=== PATIENT | female | born 1985 | race American Indian/Alaskan Native ===

== ENCOUNTER 2018-09-26 07:18 | Day surgery (SDC) | payer MEDICAID ==
[2018-09-26] MEDS ORDERED: WATER FOR IRRIG STERILE IR ONE (07:52)
[2018-09-26] MEDS ORDERED: NACL 0.9% 1000 ML 1,000 ML IV SCH (08:00)
--- NOTE | 2018-09-26 08:00 | Anesthesia Consultation ---
Anesthesia Consult and Med Hx Date of service: 09/26/18 - Airway Anesthetic Teeth Evaluation: Good ROM Head & Neck: Adequate Mental/Hyoid Distance: Adequate Mallampati Class: Class II Intubation Access Assessment: Probably Good - Pulmonary Exam CTA: Yes - Cardiac Exam Cardiac Exam: No Murmur - Pre-Operative Health Status ASA Pre-Surgery Classification: ASA2, Emergency Proposed Anesthetic Plan: Epidural, MAC - Pulmonary Hx Smoking: No Hx Asthma: Yes Hx Respiratory Symptoms: No SOB: No COPD: No Home Oxygen Therapy: No Hx Pneumonia: No Hx Sleep Apnea: No - Cardiovascular System Hx Hypertension: No Hx Coronary Artery Disease: No Hx Heart Attack/AMI: No Hx Angina: No Hx Percutaneous Transluminal Coronary Angioplasty (PTCA): No Hx Cardia Arrhythmia: No Hx Pacemaker: No Hx Internal Defibrillator: No Hx Valvular Heart Disease: No Hx Heart Murmur: No Hx Peripheral Vascular Disease: No - Central Nervous System Hx Neuromuscular Disorder: No Hx Seizures: No CVA: No Hx Back Pain: No Hx Psychiatric Problems: No - Gastrointestinal Hx Ulcer: No Hx Gastroesophageal Reflux Disease: No - Endocrine Hx Renal Disease: No Hx End Stage Renal Disease: No Hx Cirrhosis: No Hx Liver Disease: No Hx Insulin Dependent Diabetes: No Hx Non-Insulin Dependent Diabetes: No Hx Thyroid Disease: No Hx Hypothyroidism: No Hx Hyperthyroidism: No - Hematic Hx Anemia: No Hx Sickle Cell Disease: No - Other Systems Hx Alcohol Use: No Hx Substance Use: No Hx Cancer: No Hx Obesity: No
--- NOTE | 2018-09-26 08:01 | Anesthesia Day of Surgery ---
Anesthesia Day of Surgery - Day of Surgery Patient Examined: Yes Patient H&P Reviewed: Yes Patient is NPO: Yes Beta Blockers: No Cardiac Clearance: No Pulmonary Clearance: No
[2018-09-26] MEDS ORDERED: DIPRIVAN 10 MG/ML IV ONE (08:05)
[2018-09-26] MEDS ORDERED: VERSED ONE (08:05)
[2018-09-26] MEDS ORDERED: XYLOCAINE 2% INFILTRATI ONE (08:05)
--- NOTE | 2018-09-26 09:16 | Procedure Note ---
Date of procedure: 09/26/18 Pre-op diagnosis: Abdominal Pain/ melena/ Weight Loss Post-op diagnosis: other (Large,Clean Based Gastric Ulcer (lesser curvature)/ Moderate, distal Erosive Esophagitis/ Gastritis/ Duodenitis/ R/O Celiac Disease) Procedure: EGD with Biopsy Anesthesia: [facility] [place] Surgeon: JHONATHAN VALERIO Estimated blood loss: minimal Pathology: list Specimen disposition: to lab Condition: stable Disposition: same day (Avoid aspirin and NSAID for 5 days. Treat with PPI and follow up in 1 to 2 weeks ([phone]).)
[2018-09-26 10:00] VITALS: BP 123/77
--- NOTE | 2018-09-26 10:09 | Operative Report ---
PROCEDURE: Esophagogastroduodenoscopy with biopsy. INDICATIONS: This is a 33-year-old -[place] female in otherwise good health, who has lately been having persistent abdominal pain involving the left upper quadrant and on occasion has also had some weight loss and on occasion dark stools suggestive of melena. She denies any history of smoking, alcohol use, but has a history of drinking a lot of carbonated drinks. An EGD was done at [facility] to assess for any associated upper GI pathology that would account for her melena and abdominal pain. DESCRIPTION OF PROCEDURE: Procedure was done after getting informed consent with MAC anesthesia. Instrument was passed through the hypopharynx into the esophagus, which showed moderate distal erosive esophagitis. Photo documentation and biopsy was obtained from the distal esophagus. The stomach showed moderately large clean-based gastric ulcer in the lesser curvature. Photo documentation and biopsy was obtained from the edge and from the ulcer itself. Additional biopsy was also obtained from the stomach because of gastritis and to rule out for H. pylori gastritis and from the gastric antrum. Biopsy was done from the gastric antrum and the gastric body. The pylorus was patent. The duodenum and the bulb showed some mild duodenitis second part. Biopsy was done from the second part to rule out for possible associated celiac disease. There was minimal bleeding from the biopsy site. No complications associated with the procedure. ASSESSMENT: Abdominal pain, melena, large gastric ulcer in the lesser curvature of the stomach, moderate distal erosive esophagitis, gastritis, duodenitis, rule out celiac disease. The patient will be asked to avoid aspirin and aspirin-related products for the next few days. Also to avoid alcohol and carbonated drinks. The patient will be treated with PPI and asked to follow up in the office in 1-2 weeks' time. There was minimal bleeding associated with the procedure. No complications associated with the procedure. RN, Raisa Bermeo was in the room throughout the entirety of the procedure. JOB# [id number] CORTNEY/VIANEY
== END 2018-09-26 07:19 | disposition home or self-care (01) ==
LOC: GIO 07:18
DX: K29.50 Unspecified chronic gastritis without bleeding (principal); K20.9 Esophagitis, unspecified; K25.9 Gastric ulcer, unspecified as acute or chronic, without hemorrhage or perforation; J45.909 Unspecified asthma, uncomplicated; Z79.899 Other long term (current) drug therapy; Z87.891 Personal history of nicotine dependence; Z98.891 History of uterine scar from previous surgery; Z83.3 Family history of diabetes mellitus; Z82.49 Family history of ischemic heart disease and other diseases of the circulatory system
CPT/HCPCS: 43239; 81025; 88305; 88312; 88342; J2250; J2704; J7030

== ENCOUNTER 2021-11-12 09:19 | Emergency (ER) | payer MEDICAID ==
[2021-11-12 09:35] VITALS: BP 115/62
== END 2021-11-12 14:52 | disposition left against medical advice (07) ==
LOC: ED 09:19
DX: K08.89 Other specified disorders of teeth and supporting structures (principal); Z53.21 Procedure and treatment not carried out due to patient leaving prior to being seen by health care provider

== ENCOUNTER 2021-12-07 05:34 | Emergency (ER) | payer MEDICAID, OTHER | END 2021-12-07 06:48 | disposition left against medical advice (07) | LOC: ED 05:34 | DX: K08.89 Other specified disorders of teeth and supporting structures (principal); Z53.21 Procedure and treatment not carried out due to patient leaving prior to being seen by health care provider ==